=== PATIENT | male | born 1955 | race African-American/Black ===

== ENCOUNTER 2020-01-26 21:46 | Emergency (ER) | payer BC ==
--- NOTE | 2020-01-26 23:14 | RAD ---
Exam: Chest one view HISTORY:Weakness. Headache. Comparison: None FINDINGS: Cardiac silhouette:Normal cardiac silhouette. A dual lead left-sided transvenous pacemaker with lead positioned over the right atrium and right ventricle. Aorta: Unremarkable Pulmonary vessels: Normal Costophrenic angles: Clear LUNGS: No masses or consolidation. Pneumothorax: None Osseous abnormalities: None IMPRESSION: No acute cardiopulmonary process.
[2020-01-26] MEDS ORDERED: Acetaminophen 500 MG TAB ONE (23:21)
[2020-01-26 23:48] LABS: Eosinophils 1 % (0-10); Hemoglobin 13.9 g/dL (14.0-18.0); Lymphocytes 44 % (21-51); MDiff Complete? YES; Mean Corpuscular HGB CONC 33.1 g/dL (32.0-36.0); Mean Corpuscular Hemoglobin 30.2 pg (27.0-31.0); Mean Corpuscular Volume 91.2 fL (78.0-98.0); Mean Platelet Volume 8.7 fL (7.4-10.4); Monocytes 21 % (0-10); Neutrophil 34 % (42-75); Platelet Count 143 thou/uL (130-400); Platelet Morphology Comment Appears Adequate; RBC Distribution Width 10.9 % (11.5-14.5); White Blood Cell (WBC) Count 5.6 thou/uL (4.8-10.8)
[2020-01-26 23:50] LABS: ALT (SGPT) 54 U/L (8-55); AST (SGOT) 78 U/L (5-34); Albumin 3.4 g/dL (3.4-4.8); Alkaline Phosphatase 52 U/L (40-110); Anion Gap 11 mmol/L (10-20); BUN (Urea Nitrogen) 15 mg/dL (8.4-25.7); Bilirubin, Total 1.2 mg/dL (0.2-1.2); Calc. Creatinine Clearance 0 mL/min (70-130); Calcium 8.7 mg/dL (7.8-10.44); Carbon Dioxide 27 mmol/L (23-31); Chloride 101 mmol/L (98-107); Estimated GFR-MDRD Greater than 90; Globulin 4.4 g/dL (2.4-3.5); Glucose 104 mg/dL (80-115); Potassium 3.9 mmol/L (3.5-5.1); Protein, Total 7.8 g/dL (5.8-8.1); Sodium 135 mmol/L (136-145)
--- NOTE | 2020-01-27 07:39 | RAD ---
RADIOGRAPH CHEST 1 VIEW: DATE: 01/27/2020 HISTORY: 64-year-old male with generalized weakness. COMPARISON: 09/07/2017 FINDINGS: The thoracic aorta is tortuous and ectatic. There is no evidence of large consolidation, pulmonary ed monica, or pneumothorax. The lateral costophrenic angles are not effaced. There is diffuse pulmonary venous engorgement, new since prior study. Small region of increased attenuation at right medial base could be crowding of bronchovascular nataliya ngs due to current shallow inspiration. Follow-up recommended to rule out early infiltrate. IMPRESSION: 1) diffuse pulmonary venous congestion 2) ectasia of thoracic aorta. 3) questionable small focal density at right medial base. Recommend follow-up.
[2020-01-27 14:18] LABS: SARS-CoV-2 MS2 Positive; SARS-CoV-2 N Gene Positive; SARS-CoV-2 S Gene Positive; SARS-CoV-2 by NAA DETECTED (NotDetected); SARS-CoV-2 orf1ab Positive
== END 2020-01-27 01:04 | disposition home or self-care (01) ==
LOC: ERS 21:46
DX: U07.1 COVID-19 (principal); J12.89 Other viral pneumonia; I10 Essential (primary) hypertension; R53.1 Weakness
CPT/HCPCS: 36415; 71045; 80053; 84484; 85025; 87635; 93005; 96360; U0003

== ENCOUNTER 2025-06-03 09:24 | Observation (INO) | payer BC ==
[2025-06-03 10:16] LABS: #Basophils 0.03 10x3/uL (0.0-0.2); #Eosinophils 0.17 10x3/uL (0.0-0.7); #Monocytes 0.85 10x3/uL (0.11-0.59); #Neutrophils 1.43 10x3/uL (1.40-6.50); %Basophils 0.6 % (0.0-1.0); %Eosinophils 3.7 % (0.0-10.0); %Lymphocytes 46.5 % (21.0-51.0); %Monocytes 18.3 % (0.0-10.0); %Neutrophils 30.7 % (42.0-75.0); Hematocrit 27.6 % (42.0-52.0); Hemoglobin 8.2 g/dL (14.0-18.0); Mean Corpuscular Hemoglobin 23.0 pg (27.0-31.0); Mean Corpuscular Volume 77.5 fL (78.0-98.0); Platelet Count 146 10x3/uL (130-400); Red Blood Cell (RBC) Count 3.56 mill/uL (4.70-6.10); White Blood Cell (WBC) Count 4.65 10x3/uL (4.8-10.8)
[2025-06-03 10:35] LABS: ALT (SGPT) 30 U/L (Less than 45); AST (SGOT) 56 U/L (11-34); Albumin 3.1 g/dL (3.1-4.5); Alkaline Phosphatase 57 U/L (40-110); Anion Gap 11 mmol/L (10-20); BUN (Urea Nitrogen) 17 mg/dL (8.4-25.7); Bilirubin, Total 0.8 mg/dL (0.3-1.2); Calc. Creatinine Clearance 0 mL/min (70-130); Calcium 8.6 mg/dL (7.8-10.44); Carbon Dioxide 23 mmol/L (23-31); Chloride 107 mmol/L (98-107); Globulin 3.9 g/dL (2.4-3.5); Glucose 211 mg/dL (83-110); Potassium 4.1 mmol/L (3.5-5.1); Sodium 137 mmol/L (136-145)
[2025-06-03] MEDS ORDERED: Nitroglycerin 2% Ointment 1 INCH/1 GM Packet ONE (11:51)
[2025-06-03] MEDS ORDERED: cloNIDine 0.1 MG TAB PO PRN (12:18)
[2025-06-03] MEDS ORDERED: Acetaminophen 325 MG TAB PO PRN (12:44)
[2025-06-03 12:52] LABS: Iron 26 ug/dL (65-175); Iron Binding Capacity, Total 475 mcg/dL (261-462)
[2025-06-03 13:13] LABS: Ferritin 13.77 ng/mL (22-322)
[2025-06-03 13:48] VITALS: BMI 28.1
[2025-06-03] MEDS: NIFEdipine XL 60 MG ER.TAB PO SCH (15:00)
[2025-06-04 04:37] LABS: #Basophils Less than 0.03 10x3/uL (0.0-0.2); #Eosinophils 0.09 10x3/uL (0.0-0.7); #Monocytes 0.78 10x3/uL (0.11-0.59); #Neutrophils 2.88 10x3/uL (1.40-6.50); %Basophils 0.3 % (0.0-1.0); %Eosinophils 1.5 % (0.0-10.0); %Lymphocytes 35.9 % (21.0-51.0); %Monocytes 13.2 % (0.0-10.0); %Neutrophils 48.8 % (42.0-75.0); Hematocrit 26.4 % (42.0-52.0); Hemoglobin 7.9 g/dL (14.0-18.0); Mean Corpuscular Hemoglobin 23.0 pg (27.0-31.0); Mean Corpuscular Volume 76.7 fL (78.0-98.0); Platelet Count 164 10x3/uL (130-400); Red Blood Cell (RBC) Count 3.44 mill/uL (4.70-6.10); White Blood Cell (WBC) Count 5.91 10x3/uL (4.8-10.8)
[2025-06-04 04:52] LABS: Anion Gap 13 mmol/L (10-20); BUN (Urea Nitrogen) 13 mg/dL (8.4-25.7); Calc. Creatinine Clearance 96 mL/min (70-130); Calcium 8.2 mg/dL (7.8-10.44); Carbon Dioxide 20 mmol/L (23-31); Chloride 106 mmol/L (98-107); Glucose 126 mg/dL (83-110); Potassium 4.0 mmol/L (3.5-5.1); Sodium 135 mmol/L (136-145)
[2025-06-04] MEDS: NIFEdipine XL 60 MG ER.TAB PO SCH (08:16)
[2025-06-04] MEDS: FLU (Fluad Triv) 25-26 (65UP)PF 45 MCG/0.5 ML Syringe IM ONE (10:21)
[2025-06-04] MEDS: PNEUMOC 20-VAL CONJ-DIP CRM/PF 0.5 ML SYRINGE IM ONE (10:22)
[2025-06-04 12:27] VITALS: BP 154/72; TEMP 98
[2025-06-04] MEDS ORDERED: GoLYTELY 4,000 ml Bottle PO SCH (17:00)
== END 2025-06-04 14:30 | disposition home or self-care (01) ==
LOC: ERS 09:24 → OBS 13:24
PROVIDERS: ADMIT Internal Medicine; ATTEND Internal Medicine
DX: D50.9 Iron deficiency anemia, unspecified (principal); I10 Essential (primary) hypertension; R79.89 Other specified abnormal findings of blood chemistry; M25.512 Pain in left shoulder; Z79.899 Other long term (current) drug therapy
CPT/HCPCS: 36415; 71045; 80048; 80053; 82728; 83540; 83550; 84443; 84484; 85025; 93005; G0378